=== PATIENT | female | born 1955 | race Caucasian/White ===

== ENCOUNTER 2019-06-17 19:04 | Emergency (ER) | payer OTHER ==
[~2019-06-17] VITALS: Ht 162.6 cm; Wt 92.8 kg
[2019-06-17 23:12] VITALS: BP 119/84
== END 2019-06-17 23:12 | disposition home or self-care (01) ==
LOC: ED 19:04
DX: M54.5 Low back pain (principal); M62.830 Muscle spasm of back; X50.0XXA Overexertion from strenuous movement or load, initial encounter; Y93.89 Activity, other specified; Y92.89 Other specified places as the place of occurrence of the external cause; Y99.8 Other external cause status
CPT/HCPCS: J1885

== ENCOUNTER 2019-06-23 17:58 | Emergency (ER) | payer OTHER ==
[~2019-06-23] VITALS: Ht 162.6 cm; Wt 95.7 kg
[2019-06-23 18:01] VITALS: Ht 162.6 cm; Wt 95.7 kg
[2019-06-23 18:33] VITALS: BP 179/77
== END 2019-06-23 18:33 | disposition home or self-care (01) ==
LOC: ED 17:58
DX: Z13.89 Encounter for screening for other disorder (principal)